=== PATIENT | female | born 1975 | race African-American/Black ===

== ENCOUNTER 2023-10-24 09:25 | Emergency (ER) | payer SELFPAY ==
[~2023-10-24] VITALS: Ht 170.2 cm; Wt 70.0 kg
[2023-10-24 09:28] VITALS: O2SAT 100
[2023-10-24] MEDS: LEVETIRACETAM 1000MG PREMIX 100 ML IV ONE (10:02)
[2023-10-24] MEDS: MORPHINE SULFATE 4 MG/ML INJ (FOR IV/IM USE) IV STA (10:02)
[2023-10-24 10:04] LABS: BASOPHILS % 0.9 % (0.0-2.0); EOSINOPHILS % 2.9 % (0.0-5.0); HEMATOCRIT. 40.2 % (36.0-48.0); HEMOGLOBIN. 13.5 g/dL (12.0-16.0); MEAN CORPUSCULAR HEMOGLOBIN 32.6 pg (28.0-32.0); MEAN CORPUSCULAR HGB CONC 33.5 g/dL (31.0-37.0); MEAN CORPUSCULAR VOLUME 97.4 fL (81.0-99.0); MEAN PLATELET VOLUME 8.7 fl (7.4-10.4); MONOCYTES % 7.6 % (2.0-8.0); NEUTROPHILS % 68.6 % (40.0-76.0); PLATELET 177 x1000/uL (130-400); RED BLOOD CELL COUNT 4.13 mill/uL (4.2-5.4); RED CELL DISTRIBUTION WIDTH 12.6 % (11.6-14.6); WHITE BLOOD COUNT 6.2 x1000/uL (4.5-11.0)
[2023-10-24] MEDS: SODIUM CHLORIDE 0.9% 1,000 ML IV ONE (10:05)
[2023-10-24 10:10] LABS: INR 0.9; PROTHROMBIN TIME 10.3 sec (9.6-11.0)
[2023-10-24 10:38] LABS: CHLORIDE 105 mEq/L (98-107); POTASSIUM 4.3 mEq/L (3.5-5.1); SODIUM 137 mEq/L (136-145)
[2023-10-24 10:39] LABS: CALCIUM 9.3 mg/dL (8.7-10.4); CARBON DIOXIDE 25 mEq/L (21-32)
[2023-10-24 10:44] LABS: CREATININE 0.8 mg/dL (0.6-1.0); GLUCOSE 108 mg/dL (70-105); UREA NITROGEN BLOOD 10 mg/dL (9-23)
[2023-10-24 10:46] LABS: ALANINE AMINOTRANSFERASE 14 IU/L (10-49); ALBUMIN 4.4 g/dL (3.2-4.8); ASPARTATE AMINOTRANSFERASE 27 IU/L (<34)
[2023-10-24 10:47] LABS: BILIRUBIN TOTAL 0.4 mg/dL (0.1-1.0); PROTEIN TOTAL 7.9 g/dL (6.0-8.3)
[2023-10-24] MEDS: MORPHINE SULFATE 4 MG/ML INJ (FOR IV/IM USE) IV NR (10:53)
[2023-10-24] MEDS: LIDOCAINE HCL/EPINEPHRINE 1%-EPI 1:100,000 20 ML VIAL INFIL ONE (10:53)
[2023-10-24] MEDS: BACITRACIN ZINC OINT UDPKT TOP ONE (10:54)
[2023-10-24 11:03] LABS: *AMPHETAMINES SCREEN URINE NEGATIVE (NEGATIVE); *BARBITURATES SCREEN URINE NEGATIVE (NEGATIVE); *BENZODIAZEPINES SCREEN URINE NEGATIVE (NEGATIVE); *COCAINE SCREEN URINE PRESUMPTIVE POSITIVE (NEGATIVE); METHADONE URINE SCREEN Neg (NEGATIVE)
[2023-10-24 11:04] LABS: CANNABINOID URINE SCREEN PRESUMPTIVE POSITIVE (NEGATIVE); ECSTASY MDMA SCREEN URINE NEGATIVE (NEGATIVE); OPIATES URINE SCREEN NEGATIVE (NEGATIVE); PHENCYCLIDINE URINE SCREEN NEGATIVE (NEGATIVE)
[2023-10-24 11:11] LABS: ETHANOL BLOOD < 10 mg/dL (<10)
[2023-10-24] MEDS: TETANUS, DIPHTHERIA, PERTUSSIS VAC/PF 0.5ML (>10YR OLD) IM ONE (11:17)
[2023-10-24 11:19] LABS: CLARITY URINE CLOUDY (CLEAR); COLOR URINE YELLOW (YELLOW)
[2023-10-24 11:21] LABS: GLUCOSE URINE NEGATIVE (NEGATIVE); KETONES URINE NEGATIVE (NEGATIVE); LEUKOCYTE ESTERASE URINE NEGATIVE (NEGATIVE); NITRITE URINE POSITIVE (NEGATIVE); OCCULT BLOOD URINE NEGATIVE (NEGATIVE); PROTEIN URINE NEGATIVE (NEGATIVE)
[2023-10-24 11:23] LABS: BACTERIA URINE 4+; SQUAMOUS EPITHELIAL CELL URINE 1+ /lpf (RARE/1+); YEAST URINE NONE SEEN
[2023-10-24] MEDS ORDERED: CEPH500C2 MT (12:08)
[2023-10-24] MEDS ORDERED: MUPI1OIN4 TP (12:08)
[2023-10-24] MEDS: CEPHALEXIN 250MG CAPSULE PO ONE (12:31)
[2023-10-24] MEDS: NITROFURANTOIN 100MG M/M CAPSULE PO NR (12:31)
[2023-10-24 14:56] VITALS: BP 158/104; PULSE 61; RESP 12; TEMP 98.4
== END 2023-10-24 14:57 | disposition home or self-care (01) ==
LOC: ER 09:48
DX: S01.81XA Laceration without foreign body of other part of head, initial encounter (principal); G40.909 Epilepsy, unspecified, not intractable, without status epilepticus; W18.39XA Other fall on same level, initial encounter; Y93.89 Activity, other specified; Y92.89 Other specified places as the place of occurrence of the external cause; Y99.8 Other external cause status
CPT/HCPCS: 80053; 80305; 81003; 80320; 85025; 85610; 36415; 70450; 90715; 12014; 90471; 96365; 96375; 96376; 99285; J1953; J3490; J2270; J7030; Z7610 ×2; G0480

== ENCOUNTER 2024-11-02 23:05 | Emergency (ER) | payer MEDICAID ==
[~2024-11-02] VITALS: Ht 180.3 cm; Wt 70.0 kg
[~2024-11-02 23:05] MED LIST: CEPH500C2 MT; MUPI1OIN4 TP
[2024-11-02 23:07] VITALS: TEMP 37.2; O2SAT 99
[2024-11-02] MEDS: LEVETIRACETAM 500MG TABLET PO ONE (23:41)
[2024-11-02 23:55] LABS: BASOPHILS % 1.1 % (0.0-2.0); HEMATOCRIT. 39.1 % (36.0-48.0); HEMOGLOBIN. 13.1 g/dL (12.0-16.0); LYMPHOCYTES % 26.8 % (20.0-50.0); MEAN CORPUSCULAR HEMOGLOBIN 32.3 pg (28.0-32.0); MEAN CORPUSCULAR HGB CONC 33.5 g/dL (31.0-37.0); MEAN CORPUSCULAR VOLUME 96.5 fL (81.0-99.0); MEAN PLATELET VOLUME 8.2 fl (7.4-10.4); MONOCYTES % 11.7 % (2.0-8.0); NEUTROPHILS % 57.4 % (40.0-76.0); PLATELET 241 x1000/uL (130-400); RED BLOOD CELL COUNT 4.05 mill/uL (4.2-5.4); RED CELL DISTRIBUTION WIDTH 12.8 % (11.6-14.6); WHITE BLOOD COUNT 5.8 x1000/uL (4.5-11.0)
[2024-11-03 00:04] LABS: CHLORIDE 104 mEq/L (98-107); POTASSIUM 3.7 mEq/L (3.5-5.1); SODIUM 137 mEq/L (136-145)
[2024-11-03 00:05] LABS: CALCIUM 9.5 mg/dL (8.7-10.4); CARBON DIOXIDE 27 mEq/L (21-32)
[2024-11-03 00:09] LABS: HCG SCREEN NEGATIVE
[2024-11-03 00:10] LABS: CREATININE 0.8 mg/dL (0.6-1.0); ETHANOL BLOOD < 10 mg/dL (<10); GLUCOSE 88 mg/dL (70-105); UREA NITROGEN BLOOD 13 mg/dL (9-23)
[2024-11-03] MEDS ORDERED: KEPP500 MT (00:18)
[2024-11-03 01:23] VITALS: BP 135/86; PULSE 79; RESP 18; O2SAT 100
== END 2024-11-03 01:39 | disposition home or self-care (01) ==
LOC: ER 23:05
DX: G40.909 Epilepsy, unspecified, not intractable, without status epilepticus (principal); I10 Essential (primary) hypertension; Z79.899 Other long term (current) drug therapy; Z91.148 Patient's other noncompliance with medication regimen for other reason
CPT/HCPCS: 36415; 80048; 80320; 84703; 85025; 99283; G0480

== ENCOUNTER 2025-05-28 16:04 | Emergency (ER) | payer OTHER, MEDICAID ==
[~2025-05-28] VITALS: Ht 175.3 cm; Wt 54.4 kg
[~2025-05-28 16:04] MED LIST changes: +KEPP500 MT
[2025-05-28 16:13] VITALS: O2SAT 99
[2025-05-28 17:47] VITALS: TEMP 98.9
[2025-05-28] MEDS: ACETAMINOPHEN 325MG TABLET PO ONE (17:47)
[2025-05-28] MEDS: LIDOCAINE 5% PATCH TOP SCH (17:47)
[2025-05-28] MEDS ORDERED: LIDO-53 TP (18:12)
[2025-05-28] MEDS ORDERED: CYCL10TA21 MT (18:12)
[2025-05-28] MEDS ORDERED: IBUP-1455 MT (18:12)
[2025-05-28] MEDS: KETOROLAC 15MG/ML VIAL IM ONE (18:58)
[2025-05-28 19:12] VITALS: BP 136/85; PULSE 80; RESP 12; O2SAT 100
== END 2025-05-28 19:18 | disposition home or self-care (01) ==
LOC: ER 16:04
DX: M79.671 Pain in right foot (principal); M54.50 Low back pain, unspecified; M25.571 Pain in right ankle and joints of right foot; M25.551 Pain in right hip; G40.909 Epilepsy, unspecified, not intractable, without status epilepticus; M43.17 Spondylolisthesis, lumbosacral region; V19.9XXA Pedal cyclist (driver) (passenger) injured in unspecified traffic accident, initial encounter; Y93.55 Activity, bike riding; Y92.89 Other specified places as the place of occurrence of the external cause; Y99.8 Other external cause status
CPT/HCPCS: 73502; 72100; 73610; 73630; 99284; Z7610 ×3; J1885